=== PATIENT | male | born 1960 | race African-American/Black ===

== ENCOUNTER 2017-05-19 11:10 | Emergency (ER) | payer MEDICAID ==
[~2017-05-19] VITALS: Ht 190.5 cm; Wt 117.0 kg
[2017-05-19 15:05] VITALS: BP 140/55
== END 2017-05-19 15:24 | disposition home or self-care (01) ==
LOC: ER 13:34
DX: M79.662 Pain in left lower leg (principal); I10 Essential (primary) hypertension; E78.00 Pure hypercholesterolemia, unspecified; Z86.718 Personal history of other venous thrombosis and embolism; Z79.01 Long term (current) use of anticoagulants; I25.2 Old myocardial infarction; Z98.62 Peripheral vascular angioplasty status
CPT/HCPCS: 93971; 99284; Z7610